=== PATIENT | female | born 1985 | race Caucasian/White ===

== ENCOUNTER 2020-03-31 10:30 | Emergency (ER) | payer SELFPAY ==
[2020-03-31 10:49] VITALS: BP 126/77; PULSE 82; RESP 18; TEMP 36.5; O2SAT 99; BMI 23.0
--- NOTE | 2020-03-31 11:00 | XRR_ITS ---
PROCEDURE INFORMATION: Exam: XR Chest, 1 View Exam date and time: 03/31/2020 11:27 AM Age: 35 years old Clinical indication: Cough; Chest wall pain; Additional info: Cough, right rib pain TECHNIQUE: Imaging protocol: XR of the chest Views: 1 view. COMPARISON: No relevant prior studies available. FINDINGS: Lungs: Hyperinflation and interstitial prominence. Pleural space: No pleural effusion Heart/Mediastinum: No cardiomegaly. Bones/joints: Unremarkable. XR/XR chest 1V portable [id number] IMPRESSION: Hyperinflation and interstitial prominence.
--- NOTE | 2020-03-31 11:00 | W.ED.GENADLT ---
HPI - General Adult General: Chief complaint: General Medical Stated complaint: COUGH , RUNNY NOSE Time Seen by Provider: 03/31/20 10:39 History of Present Illness: HPI narrative: Complains about sinus drainage and cough and says it hurts on the right side when she coughs feels like she may be pulled her rib. complaint: Rib pain and sinus drainage Onset (ago): day(s) Severity: mild Associated symptoms: Deny chest pain, dyspnea, headache(s), nausea, rash or vomiting Review of Systems Const: Denies: fever(s), chills or body aches Eyes: Denies: change in vision or blurry vision ENMT: Reports: nasal discharge; Denies: throat pain or nasal congestion Card: Denies: chest pain or dyspnea on exertion Resp: Reports: non-productive cough and pain on inspiration; Denies: dyspnea or productive cough GI: Denies: abdominal pain, nausea or vomiting Musc: Denies: extremity pain Skin/Breast: Denies: rash Neuro: Denies: headache(s) Psych: Denies: anxiety or depression Matthew/Lymph: Denies: easy bruising Physical Exam Const: COMMON NORMALS: no acute distress, average body habitus and patient oriented x3 HENMT: COMMON NORMALS: normocephalic HEAD & SCALP: normal to inspection and normocephalic FACE & SINUS: normal facial exam Eye: COMMON NORMALS: conjunctivae normal GENERAL EYE: appearance normal, both eyes and all related structures CONJUNCTIVA: Yes conjunctivae normal Neck/C-Spine: COMMON NORMALS: no JVD Chest: CHEST: Yes localized rib tenderness with anteroposterior compression (Right side upper ribs) Resp: COMMON NORMALS: normal respiratory effort and clear to auscultation bilaterally AUSCULTATION: clear to auscultation bilaterally Cardio: COMMON NORMALS: no JVD, regular rate and regular rhythm RATE: regular rate RHYTHM: regular rhythm GI: COMMON NORMALS: Normal to inspection, nondistended, normoactive bowel sounds present Extremity: COMMON NORMALS: normal to inspection and full ROM Neuro: COMMON NORMALS: patient oriented x3 Course Vital Signs: Vital signs: Vital Signs Temperature 97.7 F 03/31/20 10:49 Pulse Rate 80 03/31/20 12:06 Respiratory Rate 16 03/31/20 12:06 Blood Pressure 125/80 03/31/20 12:06 Pulse Oximetry 98 03/31/20 12:06 Discharge Plan Discharge Patient Disposition: Home, Self-Care Clinical Impression: Sinus complaint Condition: Stable Prescriptions: New Medrol (Johnnie) 4 mg tablets,dose pack See Rx Instructions .ROUTE .COMPLEX Qty: 21 RF: 0 Bactrim DS 800-160 mg tablet 1 tab PO BID 10 Days Qty: 20 RF: 0 No Action albuterol sulfate 2.5 mg /3 mL (0.083 %) Solution For Nebulization 2.5 mg INHALATION Q6H PRN (Reason: Shortness Of Breath) RF: 0 albuterol sulfate 90 mcg/actuation Hfa Aerosol Inhaler 1 inh INHALATION QID PRN (Reason: Shortness Of Breath) RF: 0 Symbicort 160-4.5 mcg/actuation Hfa Aerosol Inhaler 2 puff INHALATION BID RF: 0 Discharge Orders: Discharge Order (Routine); Ordered 03/31/20 Ordered By: Luis Fernando Geiger Discharge Diet: Usual diet Discharge Activity: Increase activity as tolerated Patient Instructions: How to Stop Smoking (ED), Sinusitis (ED) Activity Restrictions/Additional Instructions: Follow-up with medical provider as directed. Take medications as prescribed. Return to the ER or your medical provider if condition worsens. Please read and understand discharge instructions. If any questions ask please. stop smoking Discharge Date/Time: 03/31/20 12:06 Coding Level of Care Code ED Sterile Process Tech for Ramon Fwwally Exam Comprehensive
[2020-03-31 12:06] VITALS: BP 125/80; PULSE 80; RESP 16; O2SAT 98
== END 2020-03-31 12:06 | disposition home or self-care (01) ==
PROVIDERS: Emergency Provider Nurse Practitioner Family
DX: R09.89 Other specified symptoms and signs involving the circulatory and respiratory systems (principal)
CPT/HCPCS: 12345; 71045; 99282